=== PATIENT | female | born 1985 | race Caucasian/White ===

== ENCOUNTER 2020-09-09 06:39 | Emergency (ER) | payer MEDICAID ==
[~2020-09-09] VITALS: Ht 165.1 cm; Wt 75.0 kg
[2020-09-09 06:43] VITALS: BP 127/73
[2020-09-09] MEDS ORDERED: acetaminophen 325mg tablet PO ONE (07:20)
[2020-09-09] MEDS ORDERED: AMOX500C2 PO (07:21)
== END 2020-09-09 07:31 | disposition home or self-care (01) ==
LOC: ER 06:41
DX: H66.92 Otitis media, unspecified, left ear (principal); Z79.2 Long term (current) use of antibiotics
CPT/HCPCS: 99283